=== PATIENT | male | born 1950 | race African-American/Black ===

== ENCOUNTER 2022-05-23 20:46 | Emergency (ER) | payer MEDICARE ==
[~2022-05-23] VITALS: Ht 193 cm; Wt 105.0 kg
[2022-05-23 21:10] VITALS: BP 125/75
== END 2022-05-24 02:13 | disposition left against medical advice (07) ==
LOC: ER 20:46
DX: Z53.21 Procedure and treatment not carried out due to patient leaving prior to being seen by health care provider (principal); I10 Essential (primary) hypertension